=== PATIENT | male | born 1960 | race Caucasian/White ===

== ENCOUNTER → 2019-09-17 08:09 | Outpatient (BNVA) | payer MEDICARE, MEDICAID, SELFPAY | PROVIDERS: Family Provider Family Medicine; Visit Provider Nurse Practitioner Psychiatric/Mental Health | DX: F06.34 Mood disorder due to known physiological condition with mixed features (principal); Z87.820 Personal history of traumatic brain injury; F17.210 Nicotine dependence, cigarettes, uncomplicated; G31.84 Mild cognitive impairment of uncertain or unknown etiology; F33.42 Major depressive disorder, recurrent, in full remission | CPT/HCPCS: 99213 ==

== ENCOUNTER → 2019-12-17 07:43 | Outpatient (BNVA) | payer MEDICARE, MEDICAID, SELFPAY | PROVIDERS: Family Provider Family Medicine; Visit Provider Nurse Practitioner Psychiatric/Mental Health | DX: F06.34 Mood disorder due to known physiological condition with mixed features (principal); Z87.820 Personal history of traumatic brain injury; F17.210 Nicotine dependence, cigarettes, uncomplicated; G31.84 Mild cognitive impairment of uncertain or unknown etiology; F43.12 Post-traumatic stress disorder, chronic | CPT/HCPCS: 99213 ==

== ENCOUNTER → 2020-03-17 07:37 | Outpatient (BNVA) | payer MEDICARE, MEDICAID, SELFPAY | PROVIDERS: Family Provider Family Medicine; Visit Provider Nurse Practitioner Psychiatric/Mental Health | DX: F06.34 Mood disorder due to known physiological condition with mixed features (principal); Z87.820 Personal history of traumatic brain injury; F17.210 Nicotine dependence, cigarettes, uncomplicated; G31.84 Mild cognitive impairment of uncertain or unknown etiology; F33.42 Major depressive disorder, recurrent, in full remission | CPT/HCPCS: 99213 ==

== ENCOUNTER → 2020-05-30 12:07 | Outpatient (BNVA) | payer MEDICARE, MEDICAID, SELFPAY | PROVIDERS: Family Provider Family Medicine; Visit Provider Nurse Practitioner Family | DX: I49.9 Cardiac arrhythmia, unspecified (principal); E78.2 Mixed hyperlipidemia; E55.9 Vitamin D deficiency, unspecified; Z79.899 Other long term (current) drug therapy | CPT/HCPCS: 80053; 80061; 81003; 82306; 83036; 84443; 85025 ==

== ENCOUNTER → 2020-06-16 08:21 | Outpatient (BNVA) | payer MEDICARE, MEDICAID, SELFPAY | PROVIDERS: Family Provider Family Medicine; Visit Provider Nurse Practitioner Psychiatric/Mental Health | DX: F06.34 Mood disorder due to known physiological condition with mixed features (principal); Z87.820 Personal history of traumatic brain injury; F17.210 Nicotine dependence, cigarettes, uncomplicated; G31.84 Mild cognitive impairment of uncertain or unknown etiology | CPT/HCPCS: 99214 ==

== ENCOUNTER → 2020-07-19 11:00 | Outpatient (BNVA) | payer MEDICARE, MEDICAID, SELFPAY | PROVIDERS: Family Provider Family Medicine; PCP Nurse Practitioner Family; Visit Provider Nurse Practitioner Family | DX: E55.9 Vitamin D deficiency, unspecified (principal); D64.9 Anemia, unspecified | CPT/HCPCS: 82306; 82607 ==

== ENCOUNTER → 2020-09-22 08:10 | Outpatient (BNVA) | payer MEDICARE, MEDICAID, SELFPAY | PROVIDERS: Family Provider Family Medicine; PCP Nurse Practitioner Family; Visit Provider Nurse Practitioner Psychiatric/Mental Health | DX: F06.34 Mood disorder due to known physiological condition with mixed features (principal); Z87.820 Personal history of traumatic brain injury; F17.210 Nicotine dependence, cigarettes, uncomplicated; G31.84 Mild cognitive impairment of uncertain or unknown etiology | CPT/HCPCS: 99214 ==

== ENCOUNTER → 2021-02-16 11:30 | Outpatient (BNVA) | payer MEDICARE, MEDICAID, SELFPAY | PROVIDERS: Family Provider Family Medicine; PCP Nurse Practitioner Family; Visit Provider Nurse Practitioner Family | DX: E55.9 Vitamin D deficiency, unspecified (principal) | CPT/HCPCS: 82306 ==

== ENCOUNTER → 2021-03-16 08:00 | Outpatient (BNVA) | payer MEDICARE, MEDICAID, SELFPAY | PROVIDERS: Family Provider Family Medicine; PCP Nurse Practitioner Family; Visit Provider Nurse Practitioner Psychiatric/Mental Health | DX: F06.34 Mood disorder due to known physiological condition with mixed features (principal); Z87.820 Personal history of traumatic brain injury; F17.210 Nicotine dependence, cigarettes, uncomplicated; G31.84 Mild cognitive impairment of uncertain or unknown etiology | CPT/HCPCS: 99213 ==

== ENCOUNTER → 2021-05-10 15:36 | Outpatient (BNVA) | payer MEDICARE, MEDICAID, SELFPAY | PROVIDERS: Family Provider Family Medicine; PCP Nurse Practitioner Family; Visit Provider Nurse Practitioner Family | DX: I10 Essential (primary) hypertension (principal); Z12.5 Encounter for screening for malignant neoplasm of prostate; E55.9 Vitamin D deficiency, unspecified; Z79.899 Other long term (current) drug therapy; E78.2 Mixed hyperlipidemia | CPT/HCPCS: 73502; 80053; 80061; 81003; 82306; 83036; 84443; 85025; G0103 ==

== ENCOUNTER → 2021-06-22 07:43 | Outpatient (BNVA) | payer MEDICARE, MEDICAID, SELFPAY | PROVIDERS: Family Provider Family Medicine; PCP Nurse Practitioner Family; Visit Provider Nurse Practitioner Psychiatric/Mental Health | DX: F06.34 Mood disorder due to known physiological condition with mixed features (principal); Z87.820 Personal history of traumatic brain injury; F17.210 Nicotine dependence, cigarettes, uncomplicated; G31.84 Mild cognitive impairment of uncertain or unknown etiology | CPT/HCPCS: 99214 ==

== ENCOUNTER → 2021-08-13 10:41 | Outpatient (BNVA) | payer MEDICARE, MEDICAID, SELFPAY | PROVIDERS: Family Provider Family Medicine; PCP Nurse Practitioner Family; Visit Provider Nurse Practitioner Family | DX: D64.9 Anemia, unspecified (principal); M25.552 Pain in left hip; R26.89 Other abnormalities of gait and mobility | CPT/HCPCS: 80053; 81003; 82607; 82728; 83550; 83921; 85025 ==

== ENCOUNTER → 2021-09-21 08:05 | Outpatient (BNVA) | payer MEDICARE, MEDICAID, SELFPAY | PROVIDERS: Family Provider Family Medicine; PCP Nurse Practitioner Family; Visit Provider Nurse Practitioner Psychiatric/Mental Health | DX: F06.34 Mood disorder due to known physiological condition with mixed features (principal); F17.210 Nicotine dependence, cigarettes, uncomplicated; Z87.820 Personal history of traumatic brain injury; G31.84 Mild cognitive impairment of uncertain or unknown etiology | CPT/HCPCS: 99214 ==

== ENCOUNTER → 2022-01-18 10:36 | Outpatient (BNVA) | payer MEDICARE, OTHER, SELFPAY | PROVIDERS: Family Provider Family Medicine; PCP Nurse Practitioner Family; Visit Provider Nurse Practitioner | DX: I10 Essential (primary) hypertension (principal); Z79.899 Other long term (current) drug therapy; E78.2 Mixed hyperlipidemia; E55.9 Vitamin D deficiency, unspecified; F06.34 Mood disorder due to known physiological condition with mixed features; M25.552 Pain in left hip | CPT/HCPCS: 80053; 80061; 81003; 82306; 83036; 84443; 85025 ==

== ENCOUNTER → 2022-05-15 10:51 | Outpatient (BNVA) | payer MEDICARE, MEDICAID, OTHER, SELFPAY | PROVIDERS: Family Provider Family Medicine; PCP Nurse Practitioner; Visit Provider Nurse Practitioner Family | DX: M17.12 Unilateral primary osteoarthritis, left knee (principal); M25.562 Pain in left knee | CPT/HCPCS: 73562 ==

== ENCOUNTER → 2022-05-24 12:04 | Outpatient (BNVA) | payer MEDICARE, MEDICAID, SELFPAY | PROVIDERS: Family Provider Family Medicine; PCP Nurse Practitioner; Visit Provider Nurse Practitioner | DX: Z79.899 Other long term (current) drug therapy (principal) | CPT/HCPCS: 80053; 80061; 81000; 84443; 85025 ==

== ENCOUNTER → 2022-06-03 13:25 | Outpatient (BNVA) | payer MEDICARE, MEDICAID, SELFPAY | PROVIDERS: Family Provider Family Medicine; PCP Nurse Practitioner; Referring Provider Nurse Practitioner Family; Visit Provider Student in an Organized Health Care Education/Training Program | DX: M17.12 Unilateral primary osteoarthritis, left knee (principal) | CPT/HCPCS: 20610; 73560; 73565; 99203; J3301 ==

== ENCOUNTER → 2022-06-04 11:02 | Outpatient (BNVA) | payer MEDICARE, MEDICAID, SELFPAY | PROVIDERS: Family Provider Family Medicine; PCP Nurse Practitioner; Visit Provider Nurse Practitioner | DX: D72.9 Disorder of white blood cells, unspecified (principal) | CPT/HCPCS: 85025 ==

== ENCOUNTER 2022-06-10 08:16 | Oncology outpatient (recurring) (ONCR) | payer MEDICARE, MEDICAID, SELFPAY ==
[2022-06-10 09:34] LABS: Basophils # 0.1 10^3/uL (0.0-0.1); Basophils % 0.4 %; Eosinophils # 0.3 10^3/uL (0.0-0.8); Eosinophils % 2.3 %; Hemoglobin 14.4 g/dL (11.7-16.6); Lymphocytes # 2.7 10^3/uL (0.8-4.8); Lymphocytes % 20.6 %; Mean Corpuscular HGB Conc 33.5 g/dL (30.0-36.0); Mean Corpuscular Hemoglobin 32.1 pg (28.0-34.0); Mean Platelet Volume 9.4 fL (7.4-10.4); Monocytes # 1.8 10^3/uL (0.2-0.9); Monocytes % 14.1 %; Neutrophils # 8.05 10^3/uL (1.8-7.7); Neutrophils % 62.2 %; Nucleated Red Blood Cells % 0 %; Platelet Count 385 10^3/cmm (130-400); Red Blood Count 4.48 10^6/uL (4.1-5.3); Red Cell Distribution Width 14.7 % (12.1-15.1); White Blood Count 12.9 10^3/uL (4.0-10.0)
[2022-06-10 09:40] LABS: Erythrocyte Sedimentation Rate 1 mm/hr (0-10); LAB Peripheral Smear Sent for Review
[2022-06-10 09:55] LABS: Alanine Aminotransferase 16 U/L (0-41); Albumin Level 4.1 g/dL (3.5-5.2); Alkaline Phosphatase 89 U/L (40-130); Aspartate Amino Transferase 10 U/L (0-40); Blood Urea Nitrogen 8 mg/dL (8-23); Calcium 9.4 mg/dL (8.5-10.5); Carbon Dioxide 30 mmol/L (22-29); Chloride 102 mmol/L (98-107); Globulin 2.4 g/dL (1.3-4.6); Glomerular Filtration Rate 169.6 mL/min (90-130); Glucose 75 mg/dL (65-115); Lactate Dehydrogenase 116 U/L (135-225); Osmolality Calculated 283 mOsm/kg (285-295); Sodium 138 mmol/L (136-145); Total Bilirubin 0.3 mg/dL (0.15-1.2); Total Protein 6.5 g/dL (6.6-8.7)
== END 2022-06-25 23:59 | disposition home or self-care (01) ==
PROVIDERS: PCP Nurse Practitioner; Visit Provider Internal Medicine Medical Oncology
DX: D72.829 Elevated white blood cell count, unspecified (principal); Z90.81 Acquired absence of spleen; F17.210 Nicotine dependence, cigarettes, uncomplicated; R07.89 Other chest pain; R42 Dizziness and giddiness
CPT/HCPCS: 80053; 83615; 85025; 85651; 86140; 99204; 99205

== ENCOUNTER 2022-07-02 08:31 | Outpatient (CLI) | payer MEDICARE, MEDICAID, SELFPAY ==
--- NOTE | 2022-07-02 08:30 | CT_ITS ---
WS: [id number] CTA OF THE CHEST WITH PULMONARY EMBOLISM PROTOCOL TECHNIQUE: High-resolution contrast enhanced CTA of the chest with coronal and sagittal reformatted i mages with pulmonary embolism protocol. MIP images are also reviewed. CLINICAL INFORMATION: Chest pain COMPARISON: CTa 014 DLP: 364.[address] scans at [facility] use at least one of these dose optimization techniques: automated e xposure control; mA and/or kV adjustment per patient size (includes targeted exams where dose is matc hed to clinical indication); or iterative reconstruction. FINDINGS: Proximal main pulmonary arteries are normal. Normal segmental and subsegmental pulmonary arteries. No evidence of pulmonary embolus. Elevation LEFT hemidiaphragm. Normal caliber thoracic aorta. Normal c aliber descending thoracic aorta. Tiny RIGHT adrenal adenoma. Multiple exophytic LEFT renal cysts. Increased attenuation LEFT renal les ion is indeterminant measuring 3.5 CM. This can be followed up with ultrasound. Smaller increased att enuation cortical lesion LEFT kidney measuring 1.2 CM. LEFT adrenal gland appears normal. Normal GE j unction. No mediastinal or hilar lymphadenopathy. No axillary lymphadenopathy. Mild chronic emphysematous changes. Slight bibasilar atelectasis. No acute pulmonary infiltrates. No focal pneumonia or pleural fluid. Mild thoracic curve. Mild thoracic kyphosis. Chronic RIGHT rib fractures. Nodular RIGHT thyroid lobe. Surgical clips RIGHT upper quadrant. CT/CT angio chest PE protcl [id number] IMPRESSION: 1. No evidence of pulmonary embolus. 2. Mild chronic emphysematous changes. No acute pulmonary infiltrates. Slight bibasilar atelectasis. 3. Partially visualized LEFT renal cysts. Some of these are indeterminate with increased attenuation. This can be followed up with ultrasound. 4. Surgical clips RIGHT upper quadrant.
[2022-07-02] MEDS: iohexol 350 mg/mL 500 mL Btl (per mL) IV (08:36)
== END 2022-07-02 08:32 | disposition home or self-care (01) ==
LOC: RAD 08:34
PROVIDERS: PCP Nurse Practitioner; Visit Provider Internal Medicine Medical Oncology
DX: R07.9 Chest pain, unspecified (principal)
CPT/HCPCS: 71275; Q9967

== ENCOUNTER 2022-07-11 11:55 | Outpatient (CLI) | payer MEDICARE, MEDICAID, SELFPAY ==
--- NOTE | 2022-07-11 12:00 | CT_ITS ---
WS: [id number] CT HEAD TECHNIQUE: Noncontrast and contrast-enhanced CT of the head. Poor contrast opacification due to IV ma lfunction. Reinjection was not attempted at this time due to difficult IV access. CLINICAL INFORMATION: Disequilibrium COMPARISON: None. DLP: 2204.[address] scans at [facility] use at least one of these dose optimization techniques: automated e xposure control; mA and/or kV adjustment per patient size (includes targeted exams where dose is matc hed to clinical indication); or iterative reconstruction. FINDINGS: No evidence of intracranial hemorrhage or mass effect. No abnormal enhancement on the postcontrast im aging. Mild mucosal thickening at the mastoid tips. Mild mucosal thickening ethmoid air cells. Normal posterior nasopharynx. Encephalomalacia RIGHT frontal lobe and RIGHT anterior temporal lobe related to prior infarct or trauma. Incidental benign. Incidental cavum septa pellucidum.Chronic encephalomal acia LEFT anterior frontal lobe. CT/CT head wo/w con [id number] IMPRESSION: 1. No evidence of intracranial hemorrhage or mass effect. 2. Limited contrast bolus.No abnormal intracranial enhancement. 3. Moderate small vessel changes with moderate parenchymal volume loss. 4. Chronic encephalomalacia in the RIGHT greater than LEFT frontal lobes and R IGHT anterior temporal lobe likely due to prior trauma or infarcts. 5. Intracranial vascular calcification. 6. No other suspicious findings.
[2022-07-11] MEDS: iohexol 350 mg/mL 500 mL Btl (per mL) IV (14:22)
== END 2022-07-11 11:56 | disposition home or self-care (01) ==
LOC: RAD 11:55
PROVIDERS: PCP Nurse Practitioner; Visit Provider Internal Medicine Medical Oncology
DX: R42 Dizziness and giddiness (principal); G93.89 Other specified disorders of brain
CPT/HCPCS: 70470; Q9967

== ENCOUNTER 2022-07-22 15:47 | Oncology outpatient (recurring) (ONCR) | payer MEDICARE, MEDICAID, SELFPAY | END 2022-07-23 23:59 | disposition home or self-care (01) | PROVIDERS: PCP Nurse Practitioner; Visit Provider Internal Medicine Medical Oncology | DX: M17.12 Unilateral primary osteoarthritis, left knee (principal); D72.829 Elevated white blood cell count, unspecified | CPT/HCPCS: 36415; 88374; 99213 ==

== ENCOUNTER 2022-09-16 17:35 | Inpatient (IN) | payer MEDICARE, MEDICAID, SELFPAY ==
[2022-09-16] VITALS (13 sets, daily range): BP systolic 96–125; BP diastolic 67–87; PULSE 88–106; RESP 15–24; TEMP 36.7–36.8; O2SAT 90–100; BMI 24.3
--- NOTE | 2022-09-16 17:43 | ED_ITS ---
HPI - Weakness General: Chief complaint: Weakness Stated complaint: WEAKNESS/ FALL Time Seen by Provider: 09/16/22 17:42 History of Present Illness: Mr. Matute is a 62-year-old gentleman with history of COPD, hypertension, hyperlipidemia, mild cognitive impairment with history of TBI presenting to the emergency department for respiratory symptoms. He apparently fell yesterday and fell multiple times today at the custodial. He himself minimizes significance of illness saying that he is just clumsy. He denies any focal symptoms. He is requiring oxygen which is not typical for him. History otherwise limited by patient. 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 Nicotine dependence, cigarettes, uncomplicated Personal history of traumatic brain injury Psychiatric care Suprapatellar effusion of knee Tardive dyskinesia Tricompartment osteoarthritis of left knee Vitamin D deficiency Surgical History History of brain surgery History of cholecystectomy History of knee surgery History of splenectomy History of tracheostomy Social History Smoking and tobacco status: never smoked Physical Exam Const: COMMON NORMALS: alert GENERAL APPEARANCE: cooperative and well developed HENMT: COMMON NORMALS: normocephalic and atraumatic HEAD & SCALP: normocephalic and atraumatic THROAT: posterior oropharynx normal Eye: COMMON NORMALS: conjunctivae normal CONJUNCTIVA: Yes conjunctivae normal SCLERA: sclerae normal Neck/C-Spine: COMMON NORMALS: supple GENERAL: Yes trachea midline Resp: COMMON NORMALS: normal respiratory effort EFFORT & INSPECTION: Yes able to speak in complete sentences Cardio: COMMON NORMALS: regular rate and regular rhythm RATE: regular rate RHYTHM: regular rhythm GI: COMMON NORMALS: Soft to palpation PALPATION: Yes Soft to palpation and No Tenderness to palpation present (GI) PERCUSSION: normal to percussion Extremity: GENERAL: Yes normal exam except as noted and No edema Neuro: COMMON NORMALS: moves all extremities SENSORIUM/ORIENTATION: Yes alert and No Orientation impaired Psych: COMMON NORMALS: mental status grossly normal and Normal thought process present THOUGHT PROCESS: Normal thought process present Course Vital Signs: Vital signs: Vital Signs Temperature 98.2 F 09/20/22 16:47 Pulse Rate 64 09/20/22 16:47 Respiratory Rate 18 09/20/22 16:47 Blood Pressure 118/75 09/20/22 16:47 Pulse Oximetry 95 09/20/22 16:47 Oxygen Delivery Me thod Room Air 09/20/22 15:14 Oxygen Flow Rate 3 09/19/22 20:00 MDM - Weakness Medical Decision Making 62-year-old gentleman with history of TBI presenting with multiple falls and generalized weakness. Exam as above. Patient is nontoxic. EKG demonstrates sinus rhythm with nonspecific ST segment abnormalities, normal axis and intervals, no STEMI. With no significant hematologic abnormalities, metabolic panel with dehydration which is overall improved, hyperkalemia is present however there is hemolysis. CT imaging of the head and cervical spine demonstrate no acute traumatic injury. CT chest abdomen pelvis demonstrate enlarged urinary bladder and multifocal pneumonia. The dental imaging findings were discussed with the patient. Given patient's overall clinical status including oxygen requirement and laboratory/imaging findings he requires inpatient management. During ED course patient treated with antibiotics, IV fluids, magnesium replenishment. The results of ED evaluation were discussed with the patient including plan for admission due to requirement for level of care not available if discharged to prevent significant worsening/deterioration. Patient agreeable with plan. Discussed with hospitalist service who was agreeable to admit patient. Medical Records I reviewed the patient's medical records. Lab Data I reviewed the patient's lab results. 09/20/22 04:25 09/20/22 04:25 Radiology Impressions Cervical Spine CT 09/16/22 17:53 IMPRESSION: No acute findings. Chest/Abdomen/Pelvis CT 09/16/22 17:53 IMPRESSION: 1. Multifocal pneumonia in the right lung 2. Thickened esophagus. Please correlate for findings of esophagitis. IMPRESSION: 1. Markedly distended urinary bladder. 2. No acute findings in the abdomen or pelvis. COMMENTS: Consistent with the [employer]'s Incidental Findings Committee white paper (J Am Jennifer Radiol 2018): Any incidental renal lesion less than 1 cm or classified as too small to characterize, or any incidental cystic renal lesion characterized as simple-appearing, is likely benign. No follow-up imaging is recommended for these lesions per consensus recommendations based on imaging criteria. Head CT 09/16/22 17:53 IMPRESSION: No acute intracranial abnormality. Laboratory Results WBC 21.9 10^3/uL (4.0-10.0) H 09/16/22 17:51 RBC 4.64 10^6/uL (4.1-5.3) 09/16/22 17:51 Hgb 14.9 g/dL (11.7-16.6) 09/16/22 17:51 Hct 42.3 % (42.0-52.0) 09/16/22 17:51 MCV 91.2 fl (80-94) 09/16/22 17:51 MCH 32.1 pg (28.0-34.0) 09/16/22 17:51 MCHC 35.2 g/dL (30.0-36.0) 09/16/22 17:51 RDW 13.3 % (12.1-15.1) 09/16/22 17:51 Plt Count 372 10^3/cmm (130-400) 09/16/22 17:51 MPV 9.4 fL (7.4-10.4) 09/16/22 17:51 Neut % (Auto) 88.1 % 09/16/22 17:51 Lymph % (Auto) 4.1 % 09/16/22 17:51 Jerome % (Auto) 7.1 % 09/16/22 17:51 Eos % (Auto) 0.1 % 09/16/22 17:51 Baso % (Auto) 0.2 % 09/16/22 17:51 Neut # (Auto) 19.27 10^3/uL (1.8-7.7) H 09/16/22 17:51 Lymph # (Auto) 0.9 10^3/uL (0.8-4.8) 09/16/22 17:51 Jerome # (Auto) 1.6 10^3/uL (0.2-0.9) H 09/16/22 17:51 Eos # (Auto) 0.0 10^3/uL (0.0-0.8) 09/16/22 17:51 Baso # (Auto) 0.0 10^3/uL (0.0-0.1) 09/16/22 17:51 Nucleated RBC % (auto) 0 % 09/16/22 17:51 Nucleated RBCs # 0.0 /100WBC 09/16/22 17:51 Specimen Type Arterial 09/16/22 18:00 Sample Site Brachial, right 09/16/22 18:00 ABG pH 7.44 (7.35-7.45) 09/16/22 18:00 ABG pCO2 34.2 mmHg (35-45) L 09/16/22 18:00 ABG pO2 78.9 mmHg (80.0-100.0) L 09/16/22 18:00 ABG HCO3 23.3 mmol/L (22-26) 09/16/22 18:00 ABG Base Excess -0.3 mmol/L (-2.0-2.0) 09/16/22 18:00 Hudson Test N/a 09/16/22 18:00 Hematocrit 46.3 % (42-52) 09/16/22 18:00 O2 Delivery Device Nc 09/16/22 18:00 O2 Liters/Min 2.0 % 09/16/22 18:00 FiO2 28.0 % 09/16/22 18:00 Quality Assurance Coordinator ID Amh 09/16/22 18:00 Sodium 121 mmol/L (136-145) L 09/16/22 17:51 Potassium 3.6 mmol/L (3.5-5.1) 09/16/22 17:51 Chloride 87 mmol/L (98-107) L 09/16/22 17:51 Carbon Dioxide 20 mmol/L (22-29) L 09/16/22 17:51 Anion Gap 17.6 (5-19) 09/16/22 17:51 BUN 13 mg/dL (8-23) 09/16/22 17:51 Creatinine 0.5 mg/dL (0.7-1.2) L 09/16/22 17:51 GFR Calculation 169.0 mL/min (90-130) H 09/16/22 17:51 Glucose 85 mg/dL (65-115) 09/16/22 17:51 Calculated Osmolality 251 mOsm/kg (285-295) L 09/16/22 17:51 Lactic Acid 1.6 mmol/L (0.5-2.2) 09/16/22 18:57 Calcium 8.2 mg/dL (8.5-10.5) L 09/16/22 17:51 Magnesium 1.6 mg/dL (1.7-2.3) L 09/16/22 17:51 Total Bilirubin 0.5 mg/dL (0.15-1.2) 09/16/22 17:51 AST 14 U/L (0-40) 09/16/22 17:51 ALT 15 U/L (0-41) 09/16/22 17:51 Alkaline Phosphatase 90 U/L (40-130) 09/16/22 17:51 Creatine Kinase 253 U/L (39-308) 09/16/22 17:51 Troponin T Baseline 9 ng/L (0-15) 09/16/22 17:51 Troponin T 120 Minute 10.54 ng/L (0-15) 09/16/22 19:24 Delta Troponin T 1.54 ABS# (0-10) 09/16/22 19:24 C-Reactive Protein 17.8 mg/L (0.0-4.9) H 09/16/22 17:51 NT-Pro-B Natriuret Pep 193 pg/mL (0-125) H 09/16/22 17:51 Total Protein 6.1 g/dL (6.6-8.7) L 09/16/22 17:51 Albumin 3.7 g/dL (3.5-5.2) 09/16/22 17:51 Globulin 2.4 g/dL (1.3-4.6) 09/16/22 17:51 Procalcitonin 0.71 ng/mL (0-0.5) H 09/16/22 17:51 TSH 0.36 uIU/mL (0.27-4.20) 09/16/22 17:51 Urine Color Colorless (Yellow) 09/16/22 19:30 Urine Appearance Clear (CLEAR) 09/16/22 19:30 Urine pH 6.5 (5-7) 09/16/22 19:30 Ur Specific [place] 1.005 (1.005-1.030) 09/16/22 19:30 Urine Protein Neg (Negative) 09/16/22 19:30 Urine Glucose (UA) Norm (Normal) 09/16/22 19:30 Urine Ketones Negative (Negative) 09/16/22 19:30 Urine Blood Neg (Negative) 09/16/22 19:30 Urine Nitrate Negative (Negative) 09/16/22 19:30 Urine Bilirubin Neg (Negative) 09/16/22 19:30 Urine Urobilinogen Neg mg/dL (Negative) 09/16/22 19:30 Ur Leukocyte Esterase Negative (Negative) 09/16/22 19:30 Nasal Influ A H1 2009 PCR Not detected (NOT DETECT) 09/16/22 19:30 Lymphoma Panel See report 09/16/22 17:51 Immunophenotype Interp See report 09/16/22 17:51 Adenovirus (PCR) Not detected (NOT DETECT) 09/16/22 19:30 C. pneumoniae DNA (PCR) Not detected (NOT DETECT) 09/16/22 19:30 Coronavirus 229E (PCR) Not detected (NOT DETECT) 09/16/22 19:30 Human Metapneumovir PCR Not detected (NOT DETECT) 09/16/22 19:30 Influenza A (H1) PCR Not detected (NOT DETECT) 09/16/22 19:30 Influenza A (H3) PCR Not detected (NOT DETECT) 09/16/22 19:30 Influenza Type A (PCR) Not detected (NOT DETECT) 09/16/22 19:30 Influenza Type B (PCR) Not detected (NOT DETECT) 09/16/22 19:30 M. pneumoniae (PCR) Not detected (NOT DETECT) 09/16/22 19:30 Parainfluenza 1 (PCR) Not detected (NOT DETECT) 09/16/22 19:30 Parainfluenza 2 (PCR) Not detected (NOT DETECT) 09/16/22 19:30 Parainfluenza 3 (PCR) Not detected (NOT DETECT) 09/16/22 19:30 Parainfluenza 4 (PCR) Not detected (NOT DETECT) 09/16/22 19:30 RSV Type A (PCR) Not detected (NOT DETECT) 09/16/22 19:30 RSV Type B (PCR) Not detected (NOT DETECT) 09/16/22 19:30 Entero/Rhino (PCR) Not detected (NOT DETECT) 09/16/22 19:30 SARS-CoV-2 (PCR) Not detected (NOT DETECT) 09/16/22 19:30 Discharge Plan Discharge Patient Disposition: Admitted As Inpatient Admit Provider: Hailey Randolph Clinical Impression: Pneumonia, Hyponatremia, Sepsis, Acute respiratory failure with hypoxia Condition: Stable Discharge Diet: Advance as tolerated Discharge Activity: Increase activity as tolerated Coding Level of Care Code ED 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
--- NOTE | 2022-09-16 17:53 | CTR_ITS ---
PROCEDURE INFORMATION: Exam: CT Head Without Contrast Exam date and time: 09/16/2022 6:09 PM Age: 62 years old Clinical indication: Injury or trauma; Fall; Blunt trauma (contusions or hematomas); Patient HX: HX tbi; Additional info: Fall, AMS TECHNIQUE: Imaging protocol: Computed tomography of the head without contrast. Radiation optimization: All CT scans at this facility use at least one of these dose optimization techniques: automated exposure control; mA and/or kV adjustment per patient size (includes targeted exams where dose is matched to clinical indication); or iterative reconstruction. REPORTING DATA: Count of CT and Cardiac NM exams in prior 12 months: This patient has received 2 known CTs and 0 known cardiac nuclear medicine studies in the 12 months prior to the current study. COMPARISON: CT head wo/w con [id number] 07/11/2022 12:16 PM RADIATION DOSE METRICS: Total DLP (mGy-cm): 1320 FINDINGS: Brain: No hemorrhage. No edema. Areas of encephalomalacia again noted within the inferior bifrontal lobes, right greater than left, as well as anterior temporal lobes secondary to infarcts or trauma. Moderate diffuse cerebral atrophy. No mass effect. Cerebral ventricles: Normal variant intact cavum septum pellucidum and et vergae. No ventriculomegaly. Paranasal sinuses: Visualized sinuses are unremarkable. No fluid levels. Mastoid air cells: Visualized mastoid air cells are well aerated. Bones/joints: Unremarkable. No acute fracture. Soft tissues: Unremarkable. CT/CT head wo con* [id number] IMPRESSION: No acute intracranial abnormality.
--- NOTE | 2022-09-16 17:53 | CTR_ITS ---
PROCEDURE INFORMATION: Exam: CT Chest With Contrast; Diagnostic Exam date and time: 09/16/2022 6:20 PM Age: 62 years old Clinical indication: Injury or trauma; Fall; Blunt; Generalized; Other: No pain reported to erp technical lead from PT; Prior surgery; Surgery date: 6+ months; Surgery type: Loren, splenectomy; Additional info: Fall, AMS, new o2 req TECHNIQUE: Imaging protocol: Diagnostic computed tomography of the chest with contrast. Radiation optimization: All CT scans at this facility use at least one of these dose optimization techniques: automated exposure control; mA and/or kV adjustment per patient size (includes targeted exams where dose is matched to clinical indication); or iterative reconstruction. Contrast material: OMNI 350; Contrast volume: 100 ml; Contrast route: INTRAVENOUS (IV); REPORTING DATA: Count of CT and Cardiac NM exams in prior 12 months: This patient has received 2 known CTs and 0 known cardiac nuclear medicine studies in the 12 months prior to the current study. COMPARISON: CT angio chest PE protcl [id number] 07/02/2022 8:58 AM RADIATION DOSE METRICS: Total DLP (mGy-cm): 1131 FINDINGS: Lungs: There are areas of peripheral consolidation with air bronchograms in the right upper, middle and lower lobes in keeping with pneumonia. This is new compared with 07/02/2022. There is some subsegmental atelectasis at the left lung base. Pleural spaces: Unremarkable. No pneumothorax. No pleural effusion. Heart: Unremarkable. No cardiomegaly. No pericardial effusion. Mediastinal space: There is thickening of the distal esophagus which could represent some esophagitis. Please correlate clinically. Lymph nodes: There is no evidence of lymphadenopathy. Vasculature: There is no thoracic aortic aneurysm or dissection. Bones/joints: The thoracic spine demonstrates mild degenerative changes at multiple levels. Multiple old right rib fractures are identified. 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 No acute fracture is identified. Soft tissues: Unremarkable. PROCEDURE INFORMATION: Exam: CT Abdomen And Pelvis With Contrast Exam date and time: 09/16/2022 6:20 PM Age: 62 years old Clinical indication: Injury or trauma; Fall; Blunt; Generalized; Other: No pain reported to erp technical lead from PT; Prior surgery; Surgery date: 6+ months; Surgery type: Loren, splenectomy; Additional info: Fall, AMS, new o2 req TECHNIQUE: Imaging protocol: Computed tomography of the abdomen and pelvis with contrast. Radiation optimization: All CT scans at this facility use at least one of these dose optimization techniques: automated exposure control; mA and/or kV adjustment per patient size (includes targeted exams where dose is matched to clinical indication); or iterative reconstruction. Contrast material: OMNI 350; Contrast volume: 100 ml; Contrast route: INTRAVENOUS (IV); REPORTING DATA: Count of CT and Cardiac NM exams in prior 12 months: This patient has received 2 known CTs and 0 known cardiac nuclear medicine studies in the 12 months prior to the current study. COMPARISON: CR XR hip LT 2-3V wo/w pel* [id number] 05/10/2021 3:51 PM RADIATION DOSE METRICS: Total DLP (mGy-cm): 1131 FINDINGS: Liver: There are multiple surgical clips involving the posterior aspect of the right lobe of the liver unchanged. No acute finding is seen within the liver. Gallbladder and bile ducts: There has been a cholecystectomy. Pancreas: The pancreas is normal. Spleen: There has been a splenectomy. Adrenal glands: 12 mm right adrenal nodule which is benign adenoma by density measurements on the previous CT scan and is unchanged from 07/02/2022. Kidneys and ureters: There are multiple simple renal cysts. There is no evidence of hydronephrosis. There is no evidence of renal or ureteral calcifications. Stomach and bowel: Moderate diverticulosis is present in the distal colon. There is no evidence of colitis/diverticulitis. Appendix: Not identified Intraperitoneal space: Unremarkable. No free air. No significant fluid collection. Vasculature: The aorta is normal. There is no evidence of an abdominal aortic aneurysm. Lymph nodes: There is no evidence of lymphadenopathy. Urinary bladder: Urinary bladder is markedly distended with a volume of 1200 cc. Reproductive: There are findings of TURP. Bones/joints: The lumbar spine demonstrates mild degenerative changes at multiple levels. Soft tissues: Unremarkable. CT/CT chest abdpel w/*[id number] IMPRESSION: 1. Multifocal pneumonia in the right lung 2. Thickened esophagus. Please correlate for findings of esophagitis. IMPRESSION: 1. Markedly distended urinary bladder. 2. No acute findings in the abdomen or pelvis. COMMENTS: Consistent with the [employer]'s Incidental Findings Committee white paper (J Am Jennifer Radiol 2018): Any incidental renal lesion less than 1 cm or classified as too small to characterize, or any incidental cystic renal lesion characterized as simple-appearing, is likely benign. No follow-up imaging is recommended for these lesions per consensus recommendations based on imaging criteria.
--- NOTE | 2022-09-16 17:53 | CTR_ITS ---
PROCEDURE INFORMATION: Exam: CT Cervical Spine Without Contrast Exam date and time: 09/16/2022 6:09 PM Age: 62 years old Clinical indication: Injury or trauma; Fall; Blunt trauma; Additional info: Fall, AMS TECHNIQUE: Imaging protocol: Computed tomography of the cervical spine without contrast. Radiation optimization: All CT scans at this facility use at least one of these dose optimization techniques: automated exposure control; mA and/or kV adjustment per patient size (includes targeted exams where dose is matched to clinical indication); or iterative reconstruction. REPORTING DATA: Count of CT and Cardiac NM exams in prior 12 months: This patient has received 2 known CTs and 0 known cardiac nuclear medicine studies in the 12 months prior to the current study. COMPARISON: CT head wo/w con [id number] 07/11/2022 12:16 PM RADIATION DOSE METRICS: Total DLP (mGy-cm): 259 FINDINGS: Bones/joints: No acute fracture. Normal alignment. No significant disc bulge or herniation. No severe spinal canal stenosis. No significant neural foraminal narrowing. Lungs: Lung apices are normal. Soft tissues: Unremarkable. CT/CT cervical spin wo con* [id number] IMPRESSION: No acute findings.
[2022-09-16 18:10] LABS: ABG PCO2 34.2 mmHg (35-45); ABG PH Result 7.44 (7.35-7.45); Arterial Blood Gas Hematocrit 46.3 % (42-52); Base Excess ABG -0.3 mmol/L (-2.0-2.0); Blood Gas Operator Identificat AMH; Blood Gas Sample Site Brachial, right; Blood Gas Sample Type Arterial; HCO3 ABG 23.3 mmol/L (22-26); Oxygen Device NC; PO2 ABG 78.9 mmHg (80.0-100.0)
[2022-09-16] MEDS: sodium chloride 0.9% 500 ML IV (18:21)
[2022-09-16 18:23] LABS: Basophils % 0.2 %; Eosinophils % 0.1 %; Hematocrit 42.3 % (42.0-52.0); Hemoglobin 14.9 g/dL (11.7-16.6); Lymphocytes # 0.9 10^3/uL (0.8-4.8); Lymphocytes % 4.1 %; Mean Corpuscular HGB Conc 35.2 g/dL (30.0-36.0); Mean Corpuscular Hemoglobin 32.1 pg (28.0-34.0); Mean Corpuscular Volume 91.2 fl (80-94); Mean Platelet Volume 9.4 fL (7.4-10.4); Monocytes # 1.6 10^3/uL (0.2-0.9); Monocytes % 7.1 %; Neutrophils # 19.27 10^3/uL (1.8-7.7); Neutrophils % 88.1 %; Nucleated Red Blood Cells % 0 %; Platelet Count 372 10^3/cmm (130-400); Red Blood Count 4.64 10^6/uL (4.1-5.3); Red Cell Distribution Width 13.3 % (12.1-15.1); White Blood Count 21.9 10^3/uL (4.0-10.0)
[2022-09-16] MEDS: iohexol 350 mg/mL 500 mL Btl (per mL) IV (18:37)
[2022-09-16 18:47] LABS: Troponin(5th) Baseline 9 ng/L (0-15)
[2022-09-16 18:54] LABS: NT Pro B Type Natriuretic Pept 193 pg/mL (0-125); Procalcitonin 0.71 ng/mL (0-0.5); Thyroid Stimulating Hormone 0.36 uIU/mL (0.27-4.20)
[2022-09-16 19:06] LABS: Alanine Aminotransferase 15 U/L (0-41); Albumin Level 3.7 g/dL (3.5-5.2); Alkaline Phosphatase 90 U/L (40-130); Anion Gap 17.6 (5-19); Aspartate Amino Transferase 14 U/L (0-40); Blood Urea Nitrogen 13 mg/dL (8-23); C Reactive Protein 17.8 mg/L (0.0-4.9); Calcium 8.2 mg/dL (8.5-10.5); Carbon Dioxide 20 mmol/L (22-29); Chloride 87 mmol/L (98-107); Creatine Phosphokinase 253 U/L (39-308); Creatinine Clr Calc Pharmacy 175.7469; Globulin 2.4 g/dL (1.3-4.6); Glucose 85 mg/dL (65-115); Magnesium 1.6 mg/dL (1.7-2.3); Osmolality Calculated 251 mOsm/kg (285-295); Potassium 3.6 mmol/L (3.5-5.1); Sodium 121 mmol/L (136-145); Total Bilirubin 0.5 mg/dL (0.15-1.2); Total Protein 6.1 g/dL (6.6-8.7)
[2022-09-16] MEDS: cefepime 2,000 MG in sodium chloride 0.9% (plus) 50 ML 100 MG IV (19:32)
--- NOTE | 2022-09-16 19:42 | ECG_ITS ---
[facility] Test Date: 2022-09-16 Pat Name: Emeka Matute Department: Room: Gender: Male Ldr Rn: : 1960 Requested By: Epi Wen Order Number: [id number] Kofi MD: Rupesh Mcfarlane M.D. Measurements Intervals [place] Rate: 91 P: 44 WV: 174 QRS: 24 QRSD: 99 T: 53 QT: 356 QTc: 439 Interpretive Statements SINUS RHYTHM Compared to ECG 11/14/2015 12:23:15 Sinus arrhythmia no longer present Incomplete right bundle-branch block no longer present Electronically Signed On 09-17-2022 10:11:01 CDT by Rupesh Mcfarlane M.D. [id number]
[2022-09-16 19:44] LABS: Add Urine Microscopic? NO; Charge for UA Resulting for Rev
[2022-09-16 19:49] LABS: Troponin 5 2HR 10.54 ng/L (0-15)
[2022-09-16 19:51] LABS: Bilirubin Urine Neg (Negative); Blood Urine Neg (Negative); Glucose Urine UA Norm (Normal); Ketones Urine Negative (Negative); Leukocyte Esterase Urine Negative (Negative); Nitrate Urine Negative (Negative); Protein Urine Neg (Negative); Specific Gravity, Urine 1.005 (1.005-1.030); Urine Appearance Clear (CLEAR); Urine Color Colorless (Yellow); Urobilinogen Urine Neg (Negative); pH Urine 6.5 (5-7)
[2022-09-16 19:54] LABS: Lactic Sepsis W/Reflex 1.6 mmol/L (0.5-2.2)
[2022-09-16 20:04] LABS: Troponin 5 2HR Delta 1.54 ABS# (0-10)
[2022-09-16] MEDS: magnesium sulfate premix 2 GM/50 ML PIGGYBACK IV (20:14)
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
[2022-09-16] MEDS: vancomycin 2,000 MG/400 ML PIGGYBACK 200 MG IV (21:21)
[2022-09-16 21:28] LABS: Adenovirus Not Detected (NOT DETECT); Chlamydia Pneumoniae Not Detected (NOT DETECT); Coronavirus 229E,HKU1,NL63,OC4 Not Detected (NOT DETECT); Human Metapneumovirus Not Detected (NOT DETECT); Human Rhinovirus/Enterovirus Not Detected (NOT DETECT); Influenza A Not Detected (NOT DETECT); Influenza A H1 Not Detected (NOT DETECT); Influenza A H1-2009 Not Detected (NOT DETECT); Influenza A H3 Not Detected (NOT DETECT); Influenza B Not Detected (NOT DETECT); Mycoplasma Pneumoniae Not Detected (NOT DETECT); Parainfluenza Virus Type 1 Not Detected (NOT DETECT); Parainfluenza Virus Type 2 Not Detected (NOT DETECT); Parainfluenza Virus Type 3 Not Detected (NOT DETECT); Parainfluenza Virus Type 4 Not Detected (NOT DETECT); Respiratory Syncytial Virus A Not Detected (NOT DETECT); Respiratory Syncytial Virus B Not Detected (NOT DETECT); SARS-COV-2 Not Detected (NOT DETECT)
[2022-09-16] MEDS: cefepime 1,000 MG in sodium chloride 0.9% (plus) 50 ML 100 MG IV (21:40)
[2022-09-16] MEDS: heparin 5,000 unit/mL INJ 1 mL 5000 UNIT SUBCUT (21:44)
[2022-09-16] MEDS: sodium chloride 0.9% 1,000 ML 125 ML IV (21:46)
[2022-09-16 21:54] LABS: Anion Gap 12.7 (5-19); Blood Urea Nitrogen 10 mg/dL (8-23); Calcium 7.8 mg/dL (8.5-10.5); Carbon Dioxide 24 mmol/L (22-29); Chloride 94 mmol/L (98-107); Glucose 112 mg/dL (65-115); Osmolality Calculated 264 mOsm/kg (285-295); Potassium 3.7 mmol/L (3.5-5.1); Sodium 127 mmol/L (136-145)
[2022-09-16 21:56] LABS: Creatinine Clr Calc Pharmacy 175.7469
[2022-09-16 22:09] LABS: Bilirubin Urine Neg (Negative); Blood Urine Trace (Negative); Glucose Urine UA Norm (Normal); Ketones Urine Negative (Negative); Leukocyte Esterase Urine Negative (Negative); Nitrate Urine Negative (Negative); Protein Urine Neg (Negative); Urine Appearance Clear (CLEAR); Urine Color Light yellow (Yellow); Urobilinogen Urine Norm (Negative); pH Urine 7 (5-7)
[2022-09-16 22:11] LABS: Add Urine Culture? No; Add Urine Microscopic? YES; Bacteria Urine TRACE /hpf; RBC Urine 0-4 /hpf (0-2)
--- NOTE | 2022-09-16 23:46 | PC.NURSE ---
Admission Note: Pt arrived to ICU 3 @2043 from ER via stretcher. Continuous cardiac monitoring continued. Blanchable redness noted on bottom, no open wounds noted, instructed pt to turn themselves in bed every couple of hours, pt verbalized understanding. RA, SpO2 93%. Pt reported no pain.
--- NOTE | 2022-09-16 23:54 | ECG_ITS ---
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 Measurements Intervals [place] Rate: 93 P: 40 TX: 174 QRS: 31 QRSD: 96 T: 49 QT: 351 QTc: 437 Interpretive Statements SINUS RHYTHM WITH FREQUENT VENTRICULAR PREMATURE COMPLEXES Compared to ECG 09/16/2022 19:42:56 Ventricular premature complex(es) now present Electronically Signed On 09-17-2022 10:11:50 CDT by Rupesh Mcfarlane M.D. [id number]
[2022-09-16 23:55] LABS: Troponin 5 6HR 8.88 ng/L (0-15)
--- NOTE | 2022-09-16 23:56 | PC.NURSE ---
Addendum entered by Cassandra De La Rosa RN 09/17/22 00:05: Contacted Salud Taveras per patient request. Updated family on pt health status and expected discharge date. Original Note: Contacted Dominic Barnhart: Requested pt family contact information. Salud Dina (cousin): [phone] (primary), (secondary number).
[2022-09-17] VITALS (18 sets, daily range): BP systolic 98–129; BP diastolic 59–84; PULSE 58–105; RESP 15–39; TEMP 36.4–37.1; O2SAT 90–95
[2022-09-17] LABS: Troponin 5 6HR Delta -0.12 ng/L (0-12)
[2022-09-17 01:39] LABS: Urine Random Sodium 10 mmol/L
[2022-09-17 05:43] LABS: Basophils % 0.2 %; Eosinophils # 0.1 10^3/uL (0.0-0.8); Eosinophils % 0.3 %; Hematocrit 40.2 % (42.0-52.0); Lymphocytes # 1.8 10^3/uL (0.8-4.8); Lymphocytes % 11.3 %; Mean Corpuscular HGB Conc 34.8 g/dL (30.0-36.0); Mean Corpuscular Hemoglobin 32.6 pg (28.0-34.0); Mean Corpuscular Volume 93.5 fl (80-94); Mean Platelet Volume 9.3 fL (7.4-10.4); Monocytes # 1.3 10^3/uL (0.2-0.9); Neutrophils # 12.65 10^3/uL (1.8-7.7); Neutrophils % 79.8 %; Nucleated Red Blood Cells % 0 %; Platelet Count 318 10^3/cmm (130-400); Red Cell Distribution Width 13.5 % (12.1-15.1); White Blood Count 15.9 10^3/uL (4.0-10.0)
[2022-09-17] MEDS: vancomycin 1,500 MG/300 ML PIGGYBACK 200 MG IV ×3 (05:51→21:12)
[2022-09-17 06:09] LABS: Anion Gap 14.6 (5-19); Blood Urea Nitrogen 8 mg/dL (8-23); Calcium 7.9 mg/dL (8.5-10.5); Carbon Dioxide 24 mmol/L (22-29); Chloride 98 mmol/L (98-107); Glomerular Filtration Rate 218.7 mL/min (90-130); Glucose 99 mg/dL (65-115); Magnesium 1.9 mg/dL (1.7-2.3); Osmolality Calculated 274 mOsm/kg (285-295); Potassium 3.6 mmol/L (3.5-5.1); Sodium 133 mmol/L (136-145)
[2022-09-17] MEDS: sodium chloride 0.9% 1,000 ML 125 ML IV (06:32)
[2022-09-17] MEDS: budesonide 0.5 mg/2 mL Neb INHALATION ×2 (07:35→20:44)
[2022-09-17] MEDS: ipratropium-albuterol 3 mL Neb INHALATION ×4 (07:35→20:44)
[2022-09-17] MEDS: cefepime 1,000 MG in sodium chloride 0.9% (plus) 50 ML 100 MG IV ×2 (08:32→20:29)
--- NOTE | 2022-09-17 08:33 | PC.NURSE ---
pt refused heparin shot, education given on risks/benefits, patient states nah ill be all right
--- NOTE | 2022-09-17 08:44 | PC.PHAR ---
pt is from [facility] [phone]-
--- NOTE | 2022-09-17 10:09 | PC.CHAP ---
Pastoral Care Encounter/Spiritual Assessment Type of Contact [] Declined cold roller visit [] Patient/Family/Request visit [] Outpatient visit [] Follow-up visit [] Physician referral [] Code/Alert [x] Routine visit [] Staff referral [] Actively dying [] Patient sleeping [] Family support [] [] Out of room [] Palliative care [] [] Receiving care in room [] Pre-surgical visit [] Trauma [] Long length of stay [] ICU visit [] Other: Relational/Emotional Strength [x] Patient feels connected with others/family/visitors/staff [] Distress [] Loneliness/isolation [] Abandonment Spirituality of Patient [x] Person of Yesenia [] Attends Congregation of their Yesenia [x] Believes in Prayer [] Reads Bible or Bahai materials [] There are Spiritual issues to be addressed Vice President Of Academic Affairs Interventions [x] Prayer [x] Active listening [] Non-anxious presence [] Spiritual/emotional support [] Crisis/trauma care [] Spiritual counseling [] Bereavement support [] Provided bereavement packet [] Provided Bible/devotional materials [] Provided toy/stuffed animal, coloring book to patient or family member [] Provided Communion [] Anointing/[place] [] Salvation [x] Completed spiritual assessment [] Other: Impact on Illness or Injury [] Angry [] Fearful [] Anxious [] Often cries [] Exhaustion [] Unable to work [] Unable to attend spiritism [] Unable to walk/stand [] Unable to read [] Unable to drive [] Unable to eat/drink [] Unable to sleep [] Unable to be with family [] Patient intubated [] Other: Summary Time spent with patient 5 min
[2022-09-17] MEDS: tamsulosin 0.4 mg Capsule PO (12:22)
--- NOTE | 2022-09-17 13:11 | P.PN_ITS ---
Subjective Subjective: Patient reports he has been sick for about 5 days now. Endorses fever and cough. Describes cough as non-productive. Denies nausea or emesis. Later, notified patient with gross hematuria possibly secondary to trauma from the Mejía catheter. Medications: Reviewed: Yes Vitals/I&O/Wt Last Vital Signs Temp 97.8 F 09/17/22 11:55 Pulse 73 09/17/22 11:55 Resp 16 09/17/22 11:55 BP 109/70 09/17/22 11:55 Pulse Ox 95 09/17/22 11:55 O2 Del Method Nasal Cannula 09/17/22 11:55 O2 Flow Rate 3 09/17/22 11:14 09/16/22 09/17/22 09/17/22 22:59 06:59 14:59 Intake Total 4821.54 / 4821.54 2200 / 7021.54 900 / 900 Output Total 2750 / 2750 1400 / 4150 Balance 2071.54 / 2071.54 800 / 2871.54 900 / 900 Weight last 48 hrs Weight 83.733 kg Weight 90.718 kg Physical Exam Narrative: General: Patient is awake and alert. Pleasant. Head: Normocephalic. Atraumatic. EOM intact. Neck: No JVD. Cardiovascular: No gallops. No murmurs. No peripheral edema. Lungs: Rhonchi in right lung base. No wheezing. No rales. No use of accessory muscles. No crackles. Skin: No jaundice. No rashes. Abdomen: Normal bowel sounds, abdomen soft and nontender. Rectal: Rectal exam not performed since no symptoms indicated blood loss. Extremities: No cyanosis or clubbing. Musculoskeletal: 5/5 strength, normal range of motion, no swollen or erythematous joints. Neurological: Moves all 4 extremities. No myoclonus. Urinary Catheter Management: Mejía: Cath Placed During This Visit: yes Reason for Continuing Indwelling Catheter: Accurate Measurement of Urinary Output in Critically Ill Patients Urinary Catheter Date of Insertion: 09/16/22 Urinary Catheter Time of Insertion: 19:29 Data 09/17/22 04:40 09/17/22 04:40 Micro: Microbiology 09/16/22 21:52 MRSA Culture - Final Nose 09/16/22 21:52 Bacterial Antigens - Final Urine,Voided 09/16/22 21:52 Legionella Urinary Antigen - Final Urine Catheterized 09/16/22 18:57 Blood Culture - Preliminary Blood SPECIMEN COLLECTED 09/16/22 18:50 Blood Culture - Preliminary Blood SPECIMEN COLLECTED A&P Assessment and plan (1) Pneumonia: Right lower multifocal community acquired pneumonia Failed outpatient azithromycin Continue vancomycin Continue cefepime Follow up MRSA, RPV Continue breathing treatments Pulmonary toilet Supportive care (2) Hyponatremia: Suspected hypovolemic hyponatremia Sodium level is improving Encourage oral intake Trend sodium level Continue IV fluids, decrease rate (3) Leukocytosis: Suspect multifactorial Follow up leukemia and lymphoma panel (4) Hematuria: Suspect traumatic Mejía originally placed due to concern for urinary retention Discontinue Mejía catheter Monitor for acute urinary retention in the setting of blood clots Start Flomax for suspected BPH (5) History of splenectomy: Patient immunocompromised At risk for encapsulated organisms Continue broad spectrum abx (6) Nicotine dependence, cigarettes, uncomplicated: Patient would benefit from cessation Continue nicotine patch (7) Personal history of traumatic brain injury: Monitor mentation (8) Tardive dyskinesia: Continue to monitor Plan DVT ppx: Code status: Full Code Attestations Medical Necessity Statement*: Patient requires ongoing hospitalization for close monitoring and treatment of hyponatremia including serial labs and IV fluids; and IV antibiotics for pneumonia given his immunocompressed state and recent failure of oral antibiotics. Coding Level of Care Code Acute Code for [facility] Diagnoses Pneumonia J18.9 Hyponatremia E87.1 Leukocytosis D72.829 Hematuria R31.9 History of splenectomy Z90.81 Nicotine dependence, cigarettes, uncomplicated F17.210 Personal history of traumatic brain injury Z87.820 Tardive dyskinesia G24.01
[2022-09-17] MEDS: nicotine 14 mg Patch 1 PATCH TRANSDERMA (15:18)
[2022-09-18] VITALS (12 sets, daily range): BP systolic 93–112; BP diastolic 59–69; PULSE 56–69; RESP 18–20; TEMP 36.3–37.2; O2SAT 91–98
[2022-09-18 04:23] LABS: Basophils % 0.1 %; Eosinophils % 0.1 %; Hematocrit 37.1 % (42.0-52.0); Hemoglobin 12.9 g/dL (11.7-16.6); Lymphocytes # 1.3 10^3/uL (0.8-4.8); Lymphocytes % 10.1 %; Mean Corpuscular HGB Conc 34.8 g/dL (30.0-36.0); Mean Corpuscular Hemoglobin 31.9 pg (28.0-34.0); Mean Corpuscular Volume 91.8 fl (80-94); Mean Platelet Volume 9.1 fL (7.4-10.4); Monocytes # 1.5 10^3/uL (0.2-0.9); Monocytes % 11.3 %; Neutrophils # 10.07 10^3/uL (1.8-7.7); Neutrophils % 78.2 %; Nucleated Red Blood Cells % 0 %; Platelet Count 320 10^3/cmm (130-400); Red Blood Count 4.04 10^6/uL (4.1-5.3); Red Cell Distribution Width 13.3 % (12.1-15.1); White Blood Count 12.9 10^3/uL (4.0-10.0)
[2022-09-18 04:45] LABS: Albumin Level 3.3 g/dL (3.5-5.2); Anion Gap 13.7 (5-19); Blood Urea Nitrogen 12 mg/dL (8-23); Calcium 8.3 mg/dL (8.5-10.5); Carbon Dioxide 22 mmol/L (22-29); Chloride 94 mmol/L (98-107); Glomerular Filtration Rate 218.7 mL/min (90-130); Glucose 115 mg/dL (65-115); Phosphorus 2.9 mg/dL (2.5-4.5); Potassium 3.7 mmol/L (3.5-5.1); Sodium 126 mmol/L (136-145); Vancomycin Trough 9.4 ug/mL (10-15)
[2022-09-18] MEDS: vancomycin 1,750 MG/350 ML PIGGYBACK 233.33 MG IV (05:25)
[2022-09-18] MEDS: budesonide 0.5 mg/2 mL Neb INHALATION ×2 (07:55→20:51)
[2022-09-18] MEDS: ipratropium-albuterol 3 mL Neb INHALATION ×4 (07:55→20:51)
[2022-09-18] MEDS: nicotine 14 mg Patch 1 PATCH TRANSDERMA (08:45)
[2022-09-18] MEDS: cefepime 1,000 MG in sodium chloride 0.9% (plus) 50 ML 100 MG IV (08:45)
[2022-09-18] MEDS: tamsulosin 0.4 mg Capsule PO (08:45)
[2022-09-18] MEDS: levoFLOXacin 750 mg Tablet PO (12:23)
[2022-09-18 12:35] LABS: Leukemia Profile (BBPL) See Report; Lymphoma Profile (BBPL) See Report
--- NOTE | 2022-09-18 15:49 | PM.PN ---
Subjective Subjective: Patient is noted to be respiratory distress by staff. He is noted to eat quickly and there is concern for aspiration. Patient is awake and alert. He is oriented. Reports feeling better. Denies fevers, chills, or nausea. Medications: Reviewed: Yes Vitals/I&O/Wt Last Vital Signs Temp 97.3 F L 09/18/22 12:00 Pulse 69 09/18/22 15:17 Resp 18 09/18/22 15:14 BP 93/59 09/18/22 12:00 Pulse Ox 98 09/18/22 15:14 O2 Del Method Nasal Cannula 09/18/22 15:14 O2 Flow Rate 3 09/18/22 15:14 09/18/22 09/18/22 09/18/22 06:59 14:59 22:59 Intake Total 120 / 4729.167 830 / 830 Output Total 275 / 2275 Balance -155 / 2454.167 830 / 830 Weight last 48 hrs Weight 86.319 kg Weight 83.733 kg Weight 90.718 kg Physical Exam Narrative: General: Patient is awake. Conversational Head: Normocephalic. Atraumatic. EOM intact. Neck: No JVD. Cardiovascular: No gallops. No murmurs. No peripheral edema. Lungs: Rhonchi in right lung base. No wheezing. No rales. Some accessory muscles usage when talking. No crackles. Skin: No jaundice. No rashes. Abdomen: Normal bowel sounds, abdomen soft and nontender. Rectal: Rectal exam not performed since no symptoms indicated blood loss. Extremities: No cyanosis or clubbing. Musculoskeletal: 5/5 strength, normal range of motion, no swollen or erythematous joints. Neurological: Moves all 4 extremities. No myoclonus. Urinary Catheter Management: Mejía: Cath Placed During This Visit: yes, but has since been removed by the nurse Reason for Continuing Indwelling Catheter: Decision to DC Catheter Urinary Catheter Date of Insertion: 09/16/22 Urinary Catheter Time of Insertion: 19:29 Date Urinary Catheter Removed: 09/17/22 Time Urinary Catheter Discontinued: 13:00 Data 09/18/22 04:12 09/18/22 04:12 Micro: Microbiology 09/16/22 18:57 Blood Culture - Preliminary Blood NEGATIVE TO DATE 09/16/22 18:50 Blood Culture - Preliminary Blood NEGATIVE TO DATE 09/16/22 21:52 MRSA Culture - Final Nose A&P Assessment and plan (1) Pneumonia: Right lower multifocal community acquired pneumonia Failed outpatient azithromycin Discontinue IV antibiotics Start levofloxacin, QTc reviewed Continue breathing treatments Pulmonary toilet Supportive care Continue supplemental oxygen May need oxygen study prior to discharge Speech therapy consultation (2) Hyponatremia: Suspected hypovolemic hyponatremia Patient noted to taken copious free water, patient now on restriction Encourage solid intake Off IV fluids Trend renal function (3) Leukocytosis: Suspect multifactorial Follow up leukemia and lymphoma panel (4) Hematuria: Monitor for acute urinary retention in the setting of blood clots Continue Flomax (5) History of splenectomy: Patient immunocompromised At risk for encapsulated organisms Continue broad spectrum abx (6) Nicotine dependence, cigarettes, uncomplicated: Patient would benefit from cessation Continue nicotine patch (7) Personal history of traumatic brain injury: Monitor mentation (8) Tardive dyskinesia: Continue to monitor Plan DVT ppx: Holding due to hematuria Code status: Full Code Attestations Medical Necessity Statement*: Patient requires ongoing hospitalization for IV antibiotics, oxygen, speech therapy evaluation and supportive care. Coding Level of Care Code Acute Code for [facility] Diagnoses Pneumonia J18.9 Hyponatremia E87.1 Leukocytosis D72.829 Hematuria R31.9 History of splenectomy Z90.81 Nicotine dependence, cigarettes, uncomplicated F17.210 Personal history of traumatic brain injury Z87.820 Tardive dyskinesia G24.01
[2022-09-19] VITALS (12 sets, daily range): BP systolic 105–134; BP diastolic 64–71; PULSE 51–88; RESP 16–19; TEMP 36.4–37.2; O2SAT 92–98
[2022-09-19] MEDS: levoFLOXacin 750 mg Tablet PO (05:19)
[2022-09-19 06:04] LABS: Basophils # 0.1 10^3/uL (0.0-0.1); Basophils % 0.4 %; Eosinophils # 0.2 10^3/uL (0.0-0.8); Eosinophils % 1.6 %; Hematocrit 31.7 % (42.0-52.0); Hemoglobin 10.9 g/dL (11.7-16.6); Lymphocytes # 2.4 10^3/uL (0.8-4.8); Lymphocytes % 18.1 %; Mean Corpuscular HGB Conc 34.4 g/dL (30.0-36.0); Mean Corpuscular Hemoglobin 31.3 pg (28.0-34.0); Mean Corpuscular Volume 91.1 fl (80-94); Mean Platelet Volume 9.8 fL (7.4-10.4); Monocytes % 15.4 %; Neutrophils % 64.1 %; Nucleated Red Blood Cells % 0 %; Platelet Count 310 10^3/cmm (130-400); Red Blood Count 3.48 10^6/uL (4.1-5.3); Red Cell Distribution Width 13.2 % (12.1-15.1)
[2022-09-19 06:26] LABS: Albumin Level 2.9 g/dL (3.5-5.2); Anion Gap 12.3 (5-19); Blood Urea Nitrogen 9 mg/dL (8-23); Calcium 7.7 mg/dL (8.5-10.5); Carbon Dioxide 20 mmol/L (22-29); Chloride 90 mmol/L (98-107); Glomerular Filtration Rate 304.8 mL/min (90-130); Glucose 83 mg/dL (65-115); Magnesium 1.5 mg/dL (1.7-2.3); Phosphorus 2.5 mg/dL (2.5-4.5); Potassium 3.3 mmol/L (3.5-5.1)
[2022-09-19 06:31] LABS: Sodium 119 mmol/L (136-145)
--- NOTE | 2022-09-19 06:41 | PC.NURSE ---
Unable to measure accurate urinary output. Patient ambulates to bathroom by self and is not able to remember education.
[2022-09-19] MEDS: FUROsemide 10 mg/mL SDV 2mL 20 MG IVP (06:52)
[2022-09-19] MEDS: potassium chloride ER 20 mEq Tablet 40 MEQ PO (06:52)
[2022-09-19] MEDS: magnesium sulfate premix 2 GM/50 ML PIGGYBACK IV (06:52)
[2022-09-19] MEDS: budesonide 0.5 mg/2 mL Neb INHALATION ×2 (07:20→21:05)
[2022-09-19] MEDS: ipratropium-albuterol 3 mL Neb INHALATION ×4 (07:20→21:05)
[2022-09-19] MEDS: sodium chloride 1 gm Tablet PO ×2 (07:53→16:33)
[2022-09-19] MEDS: nicotine 14 mg Patch 1 PATCH TRANSDERMA (07:53)
[2022-09-19] MEDS: tamsulosin 0.4 mg Capsule PO (07:55)
[2022-09-19 08:26] LABS: Osmolality Urine 150 mOsm/kg (50-1200)
[2022-09-19 09:10] LABS: Osmolality Serum 270 mOsm/kg (278-305)
--- NOTE | 2022-09-19 09:28 | PC.NURSE ---
0930 - pt water cup noted to be refilled without staff knowledge. Cup removed from room d/t strict fluid intake orders. Pt educated and verbalizes understanding.
--- NOTE | 2022-09-19 10:54 | PC.SOCIAL ---
IMM updated Imm updated with patient at bedside. Copy of page 2 provided. Copy in chart initialed, dated and timed.
[2022-09-19 13:55] LABS: Blood Urea Nitrogen 7 mg/dL (8-23); Carbon Dioxide 21 mmol/L (22-29); Chloride 97 mmol/L (98-107); Glomerular Filtration Rate 218.7 mL/min (90-130); Glucose 121 mg/dL (65-115); Osmolality Calculated 265 mOsm/kg (285-295); Sodium 128 mmol/L (136-145)
[2022-09-19 13:56] LABS: Anion Gap 13.5 (5-19); Potassium 3.5 mmol/L (3.5-5.1)
--- NOTE | 2022-09-19 14:47 | P.PN_ITS ---
Subjective Subjective: Patient reports he is feeling much better. Reports his breathing is better but he is still requiring oxygen. He denies prior home oxygen needs. Discuss his low sodium and need for water restriction. He is in agreement. Unclear if patient has been filling his own water cup. Concern discussed with nurse. Otherwise, he denies any new complaints. Reports cough improving. Denies fevers or chills. He is hopeful to discharge tomorrow. Medications: Reviewed: Yes Vitals/I&O/Wt Last Vital Signs Temp 97.5 F L 09/19/22 12:00 Pulse 74 09/19/22 12:00 Resp 18 09/19/22 12:00 BP 105/66 09/19/22 12:00 Pulse Ox 92 09/19/22 12:00 O2 Del Method Nasal Cannula 09/19/22 10:58 O2 Flow Rate 3 09/19/22 10:58 09/18/22 09/19/22 09/19/22 22:59 06:59 14:59 Intake Total 290 / 1120 2120 / 3240 800.833 / 800.833 Output Total 2200 / 2200 Balance 290 / 1120 2120 / 3240 -1399.167 / -1399.167 Weight last 48 hrs Weight 89.675 kg Weight 86.319 kg Physical Exam Narrative: General: Patient is awake. Alert. Pleasant. Head: Normocephalic. Atraumatic. EOM intact. Neck: No JVD. Cardiovascular: No gallops. No murmurs. No peripheral edema. Lungs: Faint rhonchi in right lung base. No wheezing. No rales. Less accessory muscle use when speaking. No crackles. Skin: No jaundice. No rashes. Abdomen: Normal bowel sounds, abdomen soft and nontender. Rectal: Rectal exam not performed since no symptoms indicated blood loss. Extremities: No cyanosis or clubbing. Musculoskeletal: 5/5 strength, normal range of motion, no swollen or erythematous joints. Neurological: Moves all 4 extremities. No myoclonus. Urinary Catheter Management: Mejía: Cath Placed During This Visit: yes, but has since been removed by the nurse Reason for Continuing Indwelling Catheter: Decision to DC Catheter Urinary Catheter Date of Insertion: 09/16/22 Urinary Catheter Time of Insertion: 19:29 Date Urinary Catheter Removed: 09/17/22 Time Urinary Catheter Discontinued: 13:00 Data 09/19/22 05:16 09/19/22 13:20 A&P Assessment and plan (1) Pneumonia: Right lower multifocal community acquired pneumonia Continue Levaquin Continue breathing treatments Pulmonary toilet Supportive care Continue supplemental oxygen, wean as tolerated Speech therapy evaluated, diet per ST (2) Hyponatremia: Worsening, now severe w/ Na 119, repeat Na this afternoon now 128 again Status post Lasix this AM, may consider repeat dosing pending AM result Started on salt tab, continue for now Repeat renal function Free water restriction, d/w nursing, will remove large water cup from room Strict I&Os (3) Leukocytosis: Suspect multifactorial Follow up leukemia and lymphoma panel (4) Hematuria: Monitor for acute urinary retention in the setting of blood clots Continue Flomax (5) History of splenectomy: Patient immunocompromised At risk for encapsulated organisms Continue broad spectrum abx (6) Nicotine dependence, cigarettes, uncomplicated: Patient would benefit from cessation Continue nicotine patch (7) Personal history of traumatic brain injury: Monitor mentation (8) Tardive dyskinesia: Continue to monitor Plan DVT ppx: Holding due to reports of hematuria Code status: Full Code Attestations Medical Necessity Statement*: Patient requires ongoing hospitalization for management of severe hyponatremia, respiratory support, serial labs, and supportive care. Coding Level of Care Code Acute Code for [facility] Diagnoses Pneumonia J18.9 Hyponatremia E87.1 Leukocytosis D72.829 Hematuria R31.9 History of splenectomy Z90.81 Nicotine dependence, cigarettes, uncomplicated F17.210 Personal history of traumatic brain injury Z87.820 Tardive dyskinesia G24.01
[2022-09-20] VITALS (8 sets, daily range): BP systolic 108–126; BP diastolic 74–81; PULSE 63–85; RESP 16–18; TEMP 36.4–36.8; O2SAT 91–97
[2022-09-20 04:45] LABS: Basophils # 0.1 10^3/uL (0.0-0.1); Basophils % 0.5 %; Eosinophils # 0.3 10^3/uL (0.0-0.8); Eosinophils % 1.9 %; Hemoglobin 12.9 g/dL (11.7-16.6); Lymphocytes # 2.6 10^3/uL (0.8-4.8); Lymphocytes % 19.3 %; Mean Corpuscular HGB Conc 33.9 g/dL (30.0-36.0); Mean Corpuscular Hemoglobin 31.4 pg (28.0-34.0); Mean Corpuscular Volume 92.5 fl (80-94); Mean Platelet Volume 9.6 fL (7.4-10.4); Monocytes # 2.3 10^3/uL (0.2-0.9); Monocytes % 17.1 %; Neutrophils # 8.18 10^3/uL (1.8-7.7); Neutrophils % 60.8 %; Nucleated Red Blood Cells % 0 %; Platelet Count 384 10^3/cmm (130-400); Red Blood Count 4.11 10^6/uL (4.1-5.3); Red Cell Distribution Width 13.4 % (12.1-15.1); White Blood Count 13.5 10^3/uL (4.0-10.0)
[2022-09-20 05:12] LABS: Albumin Level 3.6 g/dL (3.5-5.2); Blood Urea Nitrogen 8 mg/dL (8-23); Calcium 8.6 mg/dL (8.5-10.5); Carbon Dioxide 27 mmol/L (22-29); Chloride 96 mmol/L (98-107); Glomerular Filtration Rate 218.7 mL/min (90-130); Glucose 96 mg/dL (65-115); Phosphorus 3.1 mg/dL (2.5-4.5); Sodium 133 mmol/L (136-145)
[2022-09-20] MEDS: levoFLOXacin 750 mg Tablet PO (05:12)
[2022-09-20] MEDS: ipratropium-albuterol 3 mL Neb INHALATION ×2 (08:12→11:28)
[2022-09-20] MEDS: budesonide 0.5 mg/2 mL Neb INHALATION (08:12)
[2022-09-20] MEDS: tamsulosin 0.4 mg Capsule PO (09:45)
[2022-09-20] MEDS: sodium chloride 1 gm Tablet PO (09:45)
[2022-09-20] MEDS: nicotine 14 mg Patch 1 PATCH TRANSDERMA (09:45)
--- NOTE | 2022-09-20 13:20 | P.DS_ITS ---
Discharge Providers Date of Admission: 09/16/22 20:16 Date of Discharge: September 20, 2022 Attending Provider at Admission: Hailey Randolph MD Attending Provider at Discharge: Terry Jeffrey MD Consults: None Primary Care Provider: Zoraida Iraheta APN Diagnoses at Discharge Discharge Diagnosis (1) Pneumonia: Status: Resolved (2) Hyponatremia: Status: Acute (3) Leukocytosis: Status: Acute (4) Hematuria: Status: Inactive (5) History of splenectomy: Status: Acute (6) Nicotine dependence, cigarettes, uncomplicated: Status: Chronic (7) Personal history of traumatic brain injury: Status: Chronic (8) Tardive dyskinesia: Status: Acute Reason for Visit Reason for Visit: WEAKNESS/ FALL Hospital Course Hospital Course Shelli Matute is a 62-year-old female with a past medical history significant for splenectomy, COPD, hypertension, seizure disorder, traumatic brain injury, mild cognitive impairment, hyperlipidemia, nicotine dependence, and tardive dyskinesia who presented with weakness and falls, found to have severe hyponatremia and right lower multifocal community acquired pneumonia. He was t reated with IV fluids, broad spectrum antibiotic (levofloxacin), supplemental oxygen, Lasix, salt tabs, and supportive care. His symptoms resolved. He was tolerating room air without difficulty by day of discharge. Patient rotated to oral antibiotics and discharged back to facility in stable condition. His hospital course was complicated by gross hematuria secondary to Mejía catheter trauma. Mejía catheter was subsequently removed and hematuria resolved. Physical Exam Narrative: General: Patient is awake.? Alert.? Pleasant. Head:? Normocephalic. Atraumatic. EOM intact. Neck: No JVD. Cardiovascular:? No gallops. No murmurs. Lungs: Good air movement. No wheezing. No rales.? No crackles. Skin: No jaundice. No rashes. Abdomen: Normal bowel sounds, abdomen soft and nontender. Rectal: Rectal exam not performed since no symptoms indicated blood loss. Extremities: No cyanosis or clubbing. Musculoskeletal: No swollen or erythematous joints. Neurological: Moves all 4 extremities. No myoclonus. Urinary Catheter Management: Mejía: Cath Placed During This Visit: yes, but has since been removed by the nurse Reason for Continuing Indwelling Catheter: Decision to DC Catheter Urinary Catheter Date of Insertion: 09/16/22 Urinary Catheter Time of Insertion: 19:29 Date Urinary Catheter Removed: 09/17/22 Time Urinary Catheter Discontinued: 13:00 Discharge Data Studies Completed and Pending Completed Studies During Hospitalization Category Date Time Status CT cervical spin wo con* [id number] Stat Cat Scan 09/16/22 17:[address] chest abdomen pelvis [CT chest abdpel w/*[id number] Cat Scan 09/16/22 17:53 Completed ] Stat CT head wo con* [id number] Stat Cat Scan 09/16/22 17:53 Completed Pending at discharge Category Date Time Status Blood Culture Stat Lab 09/16/22 18:57 Results Sputum Culture and Gram Stain Stat Lab 09/16/22 20:19 Uncollected Radiology Impressions Cervical Spine CT 09/16/22 17:53 IMPRESSION: No acute findings. Chest/Abdomen/Pelvis CT 09/16/22 17:53 IMPRESSION: 1. Multifocal pneumonia in the right lung 2. Thickened esophagus. Please correlate for findings of esophagitis. IMPRESSION: 1. Markedly distended urinary bladder. 2. No acute findings in the abdomen or pelvis. COMMENTS: Consistent with the [employer]'s Incidental Findings Committee white paper (J Am Jennifer Radiol 2018): Any incidental renal lesion less than 1 cm or classified as too small to characterize, or any incidental cystic renal lesion characterized as simple-appearing, is likely benign. No follow-up imaging is recommended for these lesions per consensus recommendations based on imaging criteria. Head CT 09/16/22 17:53 IMPRESSION: No acute intracranial abnormality. Laboratory Results WBC 13.5 10^3/uL (4.0-10.0) H 09/20/22 04:25 RBC 4.11 10^6/uL (4.1-5.3) 09/20/22 04:25 Hgb 12.9 g/dL (11.7-16.6) 09/20/22 04:25 Hct 38.0 % (42.0-52.0) L 09/20/22 04:25 MCV 92.5 fl (80-94) 09/20/22 04:25 MCH 31.4 pg (28.0-34.0) 09/20/22 04:25 MCHC 33.9 g/dL (30.0-36.0) 09/20/22 04:25 RDW 13.4 % (12.1-15.1) 09/20/22 04:25 Plt Count 384 10^3/cmm (130-400) 09/20/22 04:25 MPV 9.6 fL (7.4-10.4) 09/20/22 04:25 Neut % (Auto) 60.8 % 09/20/22 04:25 Lymph % (Auto) 19.3 % 09/20/22 04:25 [place] % (Auto) 17.1 % 09/20/22 04:25 Eos % (Auto) 1.9 % 09/20/22 04:25 Baso % (Auto) 0.5 % 09/20/22 04:25 Neut # (Auto) 8.18 10^3/uL (1.8-7.7) H 09/20/22 04:25 Lymph # (Auto) 2.6 10^3/uL (0.8-4.8) 09/20/22 04:25 [place] # (Auto) 2.3 10^3/uL (0.2-0.9) H 09/20/22 04:25 Eos # (Auto) 0.3 10^3/uL (0.0-0.8) 09/20/22 04:25 Baso # (Auto) 0.1 10^3/uL (0.0-0.1) 09/20/22 04:25 Nucleated RBC % (auto) 0 % 09/20/22 04:25 Nucleated RBCs # 0.0 /100WBC 09/20/22 04:25 Specimen Type Arterial 09/16/22 18:00 Sample Site Brachial, right 09/16/22 18:00 ABG pH 7.44 (7.35-7.45) 09/16/22 18:00 ABG pCO2 34.2 mmHg (35-45) L 09/16/22 18:00 ABG pO2 78.9 mmHg (80.0-100.0) L 09/16/22 18:00 ABG HCO3 23.3 mmol/L (22-26) 09/16/22 18:00 ABG Base Excess -0.3 mmol/L (-2.0-2.0) 09/16/22 18:00 [place] Test N/a 09/16/22 18:00 Hematocrit 46.3 % (42-52) 09/16/22 18:00 O2 Delivery Device Nc 09/16/22 18:00 O2 Liters/Min 2.0 % 09/16/22 18:00 FiO2 28.0 % 09/16/22 18:00 [employer] Assembly Supervisor ID [id number] 09/16/22 18:00 Sodium 133 mmol/L (136-145) L 09/20/22 04:25 Potassium 4.0 mmol/L (3.5-5.1) 09/20/22 04:25 Chloride 96 mmol/L (98-107) L 09/20/22 04:25 Carbon Dioxide 27 mmol/L (22-29) 09/20/22 04:25 Anion Gap 14.0 (5-19) 09/20/22 04:25 BUN 8 mg/dL (8-23) 09/20/22 04:25 Creatinine 0.4 mg/dL (0.7-1.2) L 09/20/22 04:25 GFR Calculation 218.7 mL/min (90-130) H 09/20/22 04:25 Glucose 96 mg/dL (65-115) 09/20/22 04:25 Serum Osmolality 270 mOsm/kg (278-305) L 09/16/22 23:31 Calculated Osmolality 265 mOsm/kg (285-295) L 09/19/22 13:20 Lactic Acid 1.6 mmol/L (0.5-2.2) 09/16/22 18:57 Calcium 8.6 mg/dL (8.5-10.5) 09/20/22 04:25 Phosphorus 3.1 mg/dL (2.5-4.5) 09/20/22 04:25 Magnesium 2.0 mg/dL (1.7-2.3) 09/20/22 04:25 Total Bilirubin 0.5 mg/dL (0.15-1.2) 09/16/22 17:51 AST 14 U/L (0-40) 09/16/22 17:51 ALT 15 U/L (0-41) 09/16/22 17:51 Alkaline Phosphatase 90 U/L (40-130) 09/16/22 17:51 Creatine Kinase 253 U/L (39-308) 09/16/22 17:51 Troponin T Baseline 9 ng/L (0-15) 09/16/22 17:51 Troponin T 120 Minute 10.54 ng/L (0-15) 09/16/22 19:24 Delta Troponin T 1.54 ABS# (0-10) 09/16/22 19:24 Troponin T Hi Sens 6Hr 8.88 ng/L (0-15) 09/16/22 23:31 Troponin T Hi Sens 6Hr Delta -0.12 ng/L (0-12) L 09/16/22 23:31 C-Reactive Protein 17.8 mg/L (0.0-4.9) H 09/16/22 17:51 NT-Pro-B Natriuret Pep 193 pg/mL (0-125) H 09/16/22 17:51 Total Protein 6.1 g/dL (6.6-8.7) L 09/16/22 17:51 Albumin 3.6 g/dL (3.5-5.2) 09/20/22 04:25 Globulin 2.4 g/dL (1.3-4.6) 09/16/22 17:51 Procalcitonin 0.71 ng/mL (0-0.5) H 09/16/22 17:51 TSH 0.36 uIU/mL (0.27-4.20) 09/16/22 17:51 Urine Color Light yellow (Yellow) 09/16/22 21:52 Urine Appearance Clear (CLEAR) 09/16/22 21:52 Urine pH 7 (5-7) 09/16/22 21:52 Ur Specific [place] 1.000 (1.005-1.030) L 09/16/22 21:52 Urine Protein Neg (Negative) 09/16/22 21:52 Urine Glucose (UA) Norm (Normal) 09/16/22 21:52 Urine Ketones Negative (Negative) 09/16/22 21:52 Urine Blood Trace (Negative) H 09/16/22 21:52 Urine Nitrate Negative (Negative) 09/16/22 21:52 Urine Bilirubin Neg (Negative) 09/16/22 21:52 Urine Urobilinogen Norm mg/dL (Negative) 09/16/22 21:52 Ur Leukocyte Esterase Negative (Negative) 09/16/22 21:52 Urine RBC 0-4 /hpf (0-2) H 09/16/22 21:52 Urine WBC None /hpf (0-5) 09/16/22 21:52 Ur Squamous Epith Cells None /hpf (0-5) 09/16/22 21:52 Amorphous Sediment Not Reportable 09/16/22 21:52 Urine Bacteria Trace /hpf (NONE) 09/16/22 21:52 Urine Osmolality 150 mOsm/kg (50-1200) 09/16/22 21:52 Ur Random Sodium 10 mmol/L 09/16/22 21:52 Nasal Influ A H1 2009 PCR Not detected (NOT DETECT) 09/16/22 19:30 Vancomycin Trough 9.4 ug/mL (10-15) L 09/18/22 04:12 Lymphoma Panel See report 09/16/22 17:51 Immunophenotype Interp See report 09/16/22 17:51 Adenovirus (PCR) Not detected (NOT DETECT) 09/16/22 19:30 C. pneumoniae DNA (PCR) Not detected (NOT DETECT) 09/16/22 19:30 Coronavirus 229E (PCR) Not detected (NOT DETECT) 09/16/22 19:30 Human Metapneumovir PCR Not detected (NOT DETECT) 09/16/22 19:30 Influenza A (H1) PCR Not detected (NOT DETECT) 09/16/22 19:30 Influenza A (H3) PCR Not detected (NOT DETECT) 09/16/22 19:30 Influenza Type A (PCR) Not detected (NOT DETECT) 09/16/22 19:30 Influenza Type B (PCR) Not detected (NOT DETECT) 09/16/22 19:30 M. pneumoniae (PCR) Not detected (NOT DETECT) 09/16/22 19:30 Parainfluenza 1 (PCR) Not detected (NOT DETECT) 09/16/22 19:30 Parainfluenza 2 (PCR) Not detected (NOT DETECT) 09/16/22 19:30 Parainfluenza 3 (PCR) Not detected (NOT DETECT) 09/16/22 19:30 Parainfluenza 4 (PCR) Not detected (NOT DETECT) 09/16/22 19:30 RSV Type A (PCR) Not detected (NOT DETECT) 09/16/22 19:30 RSV Type B (PCR) Not detected (NOT DETECT) 09/16/22 19:30 Entero/Rhino (PCR) Not detected (NOT DETECT) 09/16/22 19:30 SARS-CoV-2 (PCR) Not detected (NOT DETECT) 09/16/22 19:30 Vitals Last Vital Signs Temp 98.1 F 09/20/22 12:00 Pulse 63 09/20/22 12:00 Resp 18 09/20/22 12:00 BP 126/81 09/20/22 12:00 Pulse Ox 95 09/20/22 12:00 O2 Del Method Room Air 09/20/22 11:35 O2 Flow Rate 3 09/19/22 20:00 Discharge Plan Discharge Patient Disposition: Home Condition: Stable Prescriptions: New tamsulosin 0.4 mg Capsule 0.4 mg PO DAILY 30 Days Qty: 1 0RF levofloxacin 750 mg Tablet 750 mg PO DAILY@0600 5 Days Qty: 5 0RF sodium chloride 1,000 mg Tablet,Soluble 1 g PO BID 7 Days Qty: 14 0RF Continued mecobalamin (vitamin B12) 1,000 mcg tablet,disintegrating 1,000 mcg SUBLINGUAL DAILY@06 ferrous sulfate 325 mg (65 mg iron) tablet 325 mg PO DAILY@06 olanzapine [Zyprexa Zydis] 5 mg tablet,disintegrating 5 mg PO BID PRN (Reason: agitation) Qty: 60 6RF Rx Instructions: Take one tablet sublingual twice per day as needed for acute anxiety/agitation Advair Diskus 250-50 mcg/dose blister with device 1 inh inhalation BID atorvastatin 20 mg tablet 20 mg PO BEDTIME@21 levetiracetam 500 mg tablet 500 mg PO BID@06,21 lisinopril 20 mg tablet 20 mg PO DAILY@06 fluticasone propionate 50 mcg/actuation spray,suspension 1 spray intranasal DAILY PRN (Reason: Allergy Symptoms) Zyprexa 20 mg tablet 20 mg PO BEDTIME diclofenac sodium [Voltaren Arthritis Pain] 1 % gel 2 g topical QID Rx Instructions: apply to area of pain Combivent Respimat 20-100 mcg/actuation mist 1 puff inhalation QID Rx Instructions: @06:00,12:00,18:00,21:00 [place] 6 mg tablet 6 mg PO BID@06,18 Discontinued aspirin [Adult Low Dose Aspirin] 81 mg tablet,delayed release (DR/EC) 81 mg PO DAILY@06 Discharge Orders: Discharge Order (Routine); Ordered 09/20/22 Ordered By: Terry Jeffrey Referrals: Zoraida Iraheta FNP [Primary Care Provider] - 09/24/22 10:30 am Discharge Diet: Advance as tolerated Discharge Activity: Increase activity as tolerated Patient Instructions: Levofloxacin (By mouth), Viral Pneumonia (DC), Hyponatremia (DC), Opioid Safety Activity Restrictions/Additional Instructions: 1. Take medications as prescribed. 2. Drink around 2L of fluid per day, avoid polydipsia. 3. Keep follow up with primary care provider. Discharge Attestations Time Spent in Discharge Care*: greater than 30 min Status at Discharge: Overall status at discharge: patient is progressing back to baseline Quality Metrics Clinical Quality Measures [ No reported AMI, CVA or VTE this stay] Coding Level of Care Code Acute Code for g [facility] Diagnoses Pneumonia J18.9 Hyponatremia E87.1 Leukocytosis D72.829 Hematuria R31.9 History of splenectomy Z90.81 Nicotine dependence, cigarettes, uncomplicated F17.210 Personal history of traumatic brain injury Z87.820 Tardive dyskinesia G24.01
== END 2022-09-20 16:10 | disposition home or self-care (01) | DRG 190 ==
LOC: ER 19:43 → ICU 20:16 → MEDSURG 09-17 07:45
PROVIDERS: Internal Medicine; Admitting Provider Internal Medicine; Emergency Provider Emergency Medicine; PCP Nurse Practitioner; Visit Provider Internal Medicine
DX: J44.0 Chronic obstructive pulmonary disease with (acute) lower respiratory infection (principal); J18.9 Pneumonia, unspecified organism; E87.1 Hypo-osmolality and hyponatremia; T83.83XA Hemorrhage due to genitourinary prosthetic devices, implants and grafts, initial encounter; Z90.81 Acquired absence of spleen; I10 Essential (primary) hypertension; Z87.820 Personal history of traumatic brain injury; G31.84 Mild cognitive impairment of uncertain or unknown etiology; E78.2 Mixed hyperlipidemia; F17.200 Nicotine dependence, unspecified, uncomplicated; G24.01 Drug induced subacute dyskinesia; R31.0 Gross hematuria; Y73.8 Miscellaneous gastroenterology and urology devices associated with adverse incidents, not elsewhere classified; Z87.01 Personal history of pneumonia (recurrent); Z88.5 Allergy status to narcotic agent; Z88.0 Allergy status to penicillin
CPT/HCPCS: 36415; 36600; 51702; 70450; 71260; 72125; 74177; 80048; 80053; 80069; 80202; 81001; 81003; 82550; 82803; 83605; 83735; 83880; 83930; 83935; 84145; 84300; 84443; 84484; 85025; 86140; 86403; 87040; 87449; 87486; 87581; 87633; 87641; 88184; 88185; 92610; 93005; 94640; 94664; 96365; 96366; 96367; 96372; 99285; J0692; J1644; J1940; J3370; J3372; J3475; J7030; J7040; J7120; J7626; Q9967

== ENCOUNTER 2022-09-23 06:00 | Outpatient (RCR) | payer MEDICARE, MEDICAID, SELFPAY | END 2022-10-23 23:59 | disposition home or self-care (01) | LOC: WPT 06:00 | PROVIDERS: PCP Nurse Practitioner; Visit Provider Nurse Practitioner | DX: R26.9 Unspecified abnormalities of gait and mobility (principal) | CPT/HCPCS: 97110; 97112; 97116; 97163; 97530 ==

== ENCOUNTER → 2022-09-25 09:38 | Outpatient (BNVA) | payer MEDICARE, MEDICAID, OTHER, SELFPAY | PROVIDERS: PCP Nurse Practitioner; Visit Provider Nurse Practitioner | DX: J18.9 Pneumonia, unspecified organism (principal) | CPT/HCPCS: 80053; 85025 ==

== ENCOUNTER → 2022-10-03 09:09 | Outpatient (BNVA) | payer MEDICARE, MEDICAID, OTHER, SELFPAY | PROVIDERS: PCP Nurse Practitioner; Visit Provider Nurse Practitioner | DX: E87.1 Hypo-osmolality and hyponatremia (principal); D64.9 Anemia, unspecified | CPT/HCPCS: 80053; 85025 ==

== ENCOUNTER 2022-10-09 12:33 | Oncology outpatient (recurring) (ONCR) | payer MEDICARE, MEDICAID, OTHER, SELFPAY ==
[2022-10-09 13:25] LABS: Basophils # 0.1 10^3/uL (0.0-0.1); Eosinophils # 0.4 10^3/uL (0.0-0.8); Eosinophils % 3.3 %; Hematocrit 40.1 % (42.0-52.0); Hemoglobin 13.6 g/dL (11.7-16.6); Lymphocytes # 2.4 10^3/uL (0.8-4.8); Mean Corpuscular HGB Conc 33.9 g/dL (30.0-36.0); Mean Corpuscular Hemoglobin 32.1 pg (28.0-34.0); Mean Corpuscular Volume 94.6 fl (80-94); Mean Platelet Volume 9.3 fL (7.4-10.4); Monocytes # 1.4 10^3/uL (0.2-0.9); Monocytes % 13.1 %; Neutrophils # 6.43 10^3/uL (1.8-7.7); Neutrophils % 60.3 %; Nucleated Red Blood Cells % 0 %; Platelet Count 495 10^3/cmm (130-400); Red Blood Count 4.24 10^6/uL (4.1-5.3); Red Cell Distribution Width 13.4 % (12.1-15.1); White Blood Count 10.7 10^3/uL (4.0-10.0)
[2022-10-09 13:43] LABS: Alanine Aminotransferase 12 U/L (0-41); Albumin Level 3.9 g/dL (3.5-5.2); Alkaline Phosphatase 105 U/L (40-130); Anion Gap 15.6 (5-19); Aspartate Amino Transferase 12 U/L (0-40); Blood Urea Nitrogen 7 mg/dL (8-23); Calcium 8.9 mg/dL (8.5-10.5); Carbon Dioxide 26 mmol/L (22-29); Chloride 99 mmol/L (98-107); Globulin 2.5 g/dL (1.3-4.6); Glucose 111 mg/dL (65-115); Osmolality Calculated 283 mOsm/kg (285-295); Potassium 3.6 mmol/L (3.5-5.1); Sodium 137 mmol/L (136-145); Total Bilirubin 0.2 mg/dL (0.15-1.2); Total Protein 6.4 g/dL (6.6-8.7)
[2022-10-09 13:45] LABS: Erythrocyte Sedimentation Rate 11 mm/hr (0-10)
== END 2022-10-23 23:59 | disposition home or self-care (01) ==
PROVIDERS: PCP Nurse Practitioner; Visit Provider Internal Medicine Medical Oncology
DX: D72.829 Elevated white blood cell count, unspecified (principal); Z90.81 Acquired absence of spleen; F17.210 Nicotine dependence, cigarettes, uncomplicated
CPT/HCPCS: 36415; 80053; 85025; 85651; 86140; 99214

== ENCOUNTER 2022-10-24 06:00 | Outpatient (RCR) | payer MEDICARE, MEDICAID, SELFPAY | END 2022-11-22 23:59 | disposition home or self-care (01) | LOC: WPT 06:00 | PROVIDERS: PCP Nurse Practitioner; Visit Provider Nurse Practitioner | DX: R26.9 Unspecified abnormalities of gait and mobility (principal) | CPT/HCPCS: 97110; 97112; 97116; 97530 ==

== ENCOUNTER → 2022-11-22 09:25 | Outpatient (BNVA) | payer MEDICARE, MEDICAID, SELFPAY | PROVIDERS: PCP Nurse Practitioner; Visit Provider Nurse Practitioner | DX: Z79.899 Other long term (current) drug therapy (principal) | CPT/HCPCS: 80061; 83036 ==

== ENCOUNTER 2022-11-23 06:00 | Outpatient (RCR) | payer MEDICARE, MEDICAID, SELFPAY | END 2022-12-23 23:59 | disposition home or self-care (01) | LOC: WPT 06:00 | PROVIDERS: PCP Nurse Practitioner; Visit Provider Nurse Practitioner | DX: R26.9 Unspecified abnormalities of gait and mobility (principal) | CPT/HCPCS: 97110; 97530 ==

== ENCOUNTER → 2023-04-01 09:02 | Outpatient (BNVA) | payer MEDICARE, MEDICAID, SELFPAY | PROVIDERS: PCP Nurse Practitioner; Visit Provider Nurse Practitioner Family | DX: R53.83 Other fatigue (principal); N18.9 Chronic kidney disease, unspecified | CPT/HCPCS: 82607; 82746; 84439; 84443 ==

== ENCOUNTER → 2023-06-18 11:24 | Outpatient (BNVA) | payer MEDICARE, MEDICAID, SELFPAY | PROVIDERS: PCP Nurse Practitioner Family; Visit Provider Nurse Practitioner Family | DX: I10 Essential (primary) hypertension (principal); E78.2 Mixed hyperlipidemia; D64.9 Anemia, unspecified; Z79.899 Other long term (current) drug therapy; F06.34 Mood disorder due to known physiological condition with mixed features | CPT/HCPCS: 80053; 80061; 80177; 81003; 83036; 83540; 84443; 85025 ==

== ENCOUNTER → 2023-08-04 10:22 | Outpatient (BNVA) | payer MEDICARE, MEDICAID, OTHER, SELFPAY | PROVIDERS: PCP Nurse Practitioner Family; Visit Provider Nurse Practitioner Family | DX: I10 Essential (primary) hypertension (principal); E78.2 Mixed hyperlipidemia; Z79.899 Other long term (current) drug therapy; R53.83 Other fatigue; F06.34 Mood disorder due to known physiological condition with mixed features; Z12.5 Encounter for screening for malignant neoplasm of prostate; L30.9 Dermatitis, unspecified; L25.5 Unspecified contact dermatitis due to plants, except food; Z00.00 Encounter for general adult medical examination without abnormal findings | CPT/HCPCS: 85025 ==

== ENCOUNTER → 2023-08-29 10:52 | Outpatient (BNVA) | payer MEDICARE, MEDICAID, SELFPAY | PROVIDERS: PCP Nurse Practitioner Family; Visit Provider Nurse Practitioner Family | DX: L30.9 Dermatitis, unspecified (principal); Z79.899 Other long term (current) drug therapy; I10 Essential (primary) hypertension; E78.2 Mixed hyperlipidemia; R53.83 Other fatigue; Z12.5 Encounter for screening for malignant neoplasm of prostate; F06.34 Mood disorder due to known physiological condition with mixed features | CPT/HCPCS: 80053; 80061; 82607; 82746; 83036; 84443; 85025; 85651; 86140; G0103 ==